=== PATIENT | female | born 1955 | race Caucasian/White ===

== ENCOUNTER 2017-08-23 17:59 | Emergency (ER) | payer OTHER ==
[~2017-08-23] VITALS: Ht 157.5 cm; Wt 75.0 kg
[~2017-08-23 17:59] MED LIST: CYCL-36 PO; DICL25 PO; FIORINAL2 PO; FURO1TAB93 PO
[2017-08-23 18:04] VITALS: BP 168/93; PULSE 99; RESP 16; TEMP 97.8; O2SAT 98
--- NOTE | 2017-08-23 18:22 | PD ---
HPI Chief Complaint: Medication Refill Request Time Seen by Provider: 18:09 Travel History International Travel<30 days: No Contact w/Intl Traveler<30days: No Traveled to known affect area: No History of Present Illness HPI Patient is a 62-year-old female presents emergency department for evaluation of CT of the left wrist. Patient states she had a slip and fall today falling on outstretched now left hand she states she has got oddly shaped wrist and thinks she has broken her left wrist before. She was seen at urgent care facility and had an x-ray which showed a compressed radial fracture and ulnar styloid fracture and a possibly triquetral fracture all of which were undetermined age, she was recommended for a CT, the doctor there referred her to the emergency department for evaluation of CT orthopedic consult and splinting. Patient denies any other injuries denies any headache neck injury chest injury back injury abdominal injury. She denies any loss of consciousness. States is purely a mechanical fall PFSH Past Medical History Diminished Hearing: No Integumentary: Yes (EDEMA) Migraines: Yes Past Surgical History Section: Yes Hysterectomy: Yes Family History Family Hypercholesterolemia: Yes Social History Alcohol Use: Yes (WINE OCC) Tobacco Use: No Substance Use: No Allergies-Medications (Allergen,Severity, Reaction): Coded Allergies: Sulfa (Sulfonamide Antibiotics) (Unverified Allergy, Severe, HIVES, ) penicillin G (Unverified Allergy, Severe, HIVES, 08/23/17) Reported Meds & Prescriptions Reported Meds & Active Scripts Active Reported Goodys Extra Strength Powder (Ianhwvj-Ejxxuutfamtze-Udvgraea Powder) 260-520- 32.5 Mg Powderpack 1 Pkt PO DIRECTED PRN Potassium 99 Mg Tablet Unknown Dose PO DAILY Lasix (Furosemide) 40 Mg Tab 40 Mg PO BID Review of Systems Except as stated in HPI: all other systems reviewed are Neg Physical Exam Narrative GENERAL: Well-developed well-nourished no obvious distress SKIN: Focused skin assessment warm/dry. Fair sized hematoma on the dorsum of the left hand, compartments are soft peer HEAD: Atraumatic. Normocephalic. EYES: Pupils equal and round. No scleral icterus. No injection or drainage. ENT: No nasal bleeding or discharge. Mucous membranes pink and moist. NECK: Trachea midline. No JVD. CARDIOVASCULAR: Regular rate and rhythm. No murmur appreciated. RESPIRATORY: No accessory muscle use. Clear to auscultation. Breath sounds equal bilaterally. GASTROINTESTINAL: Abdomen soft, non-tender, nondistended. Hepatic and splenic margins not palpable. MUSCULOSKELETAL: There is a fair amount of hematoma on the dorsal aspect of the left hand, pulse motor and sensory intact distally in all 4 extremity, radial pulses normal, cap refill is brisk in all 5 digits of the left hand NEUROLOGICAL: Awake and alert. No obvious cranial nerve deficits. Motor grossly within normal limits. Normal speech. PSYCHIATRIC: Appropriate mood and affect; insight and judgment normal. Data Data Last Documented VS Vital Signs Date Time Temp Pulse Resp B/P (MAP) Pulse Ox O2 Delivery O2 Flow Rate FiO2 08/23/17 18:04 97.8 99 16 168/93 (118) [address] Wrist W/O Contrast (08/23/17 ) [facility] Medical Decision Making Medical Screen Exam Complete: Yes Emergency Medical Condition: Yes Differential Diagnosis Radius fracture ulnar fracture triquetral fracture, compartment syndrome is been excluded clinically, hematoma the dorsum of the hand peer Narrative Course Patient room to the emergency department, CT of the wrist is been ordered, patient will be discussed with Dr. Skyler Cardona disposition the patient abruptly after CAT scan likely home with orthopedic referral. Adelfo Martinez MD August 23, 2017 18:22
[2017-08-23] MEDS ORDERED: POTA99TA4 PO (18:24)
[2017-08-23] MEDS ORDERED: ASPI1POW6 PO (18:24)
[2017-08-23] MEDS ORDERED: FURO1TAB60 PO (18:24)
[2017-08-23 19:30] VITALS: BP 129/71; PULSE 87; RESP 18; O2SAT 96
--- NOTE | 2017-08-23 20:19 | RADRPT ---
EXAM DATE: 08/23/2017 8:04 PM EDT AGE/SEX: 62 years / Female INDICATIONS: Fall, left wrist pain CLINICAL DATA: This is the patient's initial encounter. Patient reports that signs and symptoms have been present for 1 day and indicates a pain score of 6/10. MEDICAL/SURGICAL HISTORY: None. Hysterectomy. RADIATION DOSE: 11.61 CTDI (mGy) COMPARISON: No prior [facility] exams available for comparison. TECHNIQUE: Multiple contiguous axial images were acquired using a multirow detector CT scanner witho ut contrast. Multiplanar reconstruction was performed in the sagittal and coronal planes. Using aut omated exposure control and adjustment of the mA and/or kV according to patient size, radiation dose was kept as low as reasonably achievable to obtain optimal diagnostic quality images. FINDINGS: There is normal alignment of the carpal bones and the distal radius and ulna. There is no dislocation . No acute fracture is identified. No bony destructive changes are seen. CONCLUSION: 1. No acute findings on wrist CT. Electronically signed by: Pravin Helms MD 08/23/2017 8:18 PM EDT
--- NOTE | 2017-08-23 20:37 | PD ---
Data Data Last Documented VS Vital Signs Date Time Temp Pulse Resp B/P (MAP) Pulse Ox O2 Delivery O2 Flow Rate FiO2 08/23/17 21:08 08/23/17 19:30 87 18 96 Room Air 08/23/17 18:[address] Wrist W/O Contrast (08/23/17 ) Splinting (08/23/17 ) Ed Discharge Order (08/23/17 20:37) Fiberglass Splint Forearm Adul (08/23/17 ) Sling Cradle Arm (08/23/17 ) MDM Supervised Visit with G[facility]: No Narrative Course The patient was initially evaluated by the previous provider and signed out at the beginning of my shift pending CT of the left wrist and disposition. See his note for further details. Briefly this is a 62-year-old female who was seen at an urgent care facility earlier today after a fall on an outstretched left arm and was diagnosed with several fractures in her left wrist and hand. They recommend that she present to the emergency department for CT of the left wrist and orthopedic consultation. Patient has previous injury to the left wrist that required operative repair several years ago. On exam she has a large hematoma over the posterior/medial left wrist. All compartments in the left upper extremity are supple. The left forearm and hand are neurovascularly intact. CT of the left wrist shows no acute fracture or dislocation. The patient will be placed in a left volar splint and advised to follow-up with orthopedist this week. She was advised on when to return to the emergency department patient verbalizes understanding and agreement with plan. Diagnosis Primary Impression: Contusion of left wrist Qualified Codes: S60.212A - Contusion of left wrist, initial encounter Referrals: Antonette Brandon MD 1 week Additional Instruction: Follow-up with orthopedist Dr. Brandon or orthopedist of your choice in the next 1-2 weeks. Return to the emergency department for worsening symptoms or any other concerns. Disposition: 01 DISCHARGE HOME Condition: Stable Skyler Cardona MD August 23, 2017 20:37
== END 2017-08-23 21:15 | disposition home or self-care (01) ==
LOC: NEPC 17:59
DX: S60.212A Contusion of left wrist, initial encounter (principal); W01.0XXA Fall on same level from slipping, tripping and stumbling without subsequent striking against object, initial encounter
CPT/HCPCS: 29125; 73200